=== PATIENT | female | born 1980 | race Caucasian/White ===

== ENCOUNTER → 2019-03-30 11:00 | Outpatient (BNVA) | payer MEDICARE, MEDICAID, SELFPAY | PROVIDERS: Family Provider Family Medicine; PCP Family Medicine; Visit Provider Nurse Practitioner | DX: F43.21 Adjustment disorder with depressed mood (principal); F31.81 Bipolar II disorder | CPT/HCPCS: 99213 ==

== ENCOUNTER 2019-04-28 10:00 | Outpatient (CLI) | payer MEDICARE, MEDICAID, SELFPAY ==
--- NOTE | 2019-04-28 11:14 | XR_ITS ---
WS: [id number] LEFT KNEE: 2 VIEW(S) TECHNIQUE: AP and lateral. HISTORY: UNSPECIFIED FALL, INITIAL ENCOUNTER COMPARISON: None available. No fracture or dislocation. Mild narrowing of patellofemoral joint space. Lucent areas with sclerotic margins along the posterior surface of the patella. No soft tissue abnormality. XR/XR knee LT 1-2V 56860 IMPRESSION: 1. Mild LEFT patellofemoral joint space narrowing with osteochondral lesions a long the posterior surface. 2. No fracture.
--- NOTE | 2019-04-28 11:38 | XR_ITS ---
WS: [id number] RIGHT KNEE: 2 VIEW(S) TECHNIQUE: AP and lateral. HISTORY: UNSPECIFIED FALL, INITIAL ENCOUNTER COMPARISON: None available. No fracture or dislocation. No significant narrowing of the joint spaces. Lucency with sclerotic margins in the posterior surface of the patella. No joint effusion. No soft tissue abnormality. XR/XR knee RT 1-2V 66774 IMPRESSION: 1. No fracture. 2. Suspect osteochondral defect on the posterior surface of the patella.
== END 2019-04-28 10:01 | disposition home or self-care (01) ==
LOC: RADOUTREAD 10:06
PROVIDERS: Family Provider Family Medicine; PCP Family Medicine; Visit Provider Family Medicine
DX: M22.2X2 Patellofemoral disorders, left knee (principal); S89.92XA Unspecified injury of left lower leg, initial encounter; S89.91XA Unspecified injury of right lower leg, initial encounter; W19.XXXA Unspecified fall, initial encounter
CPT/HCPCS: 73560

== ENCOUNTER → 2019-06-26 07:30 | Outpatient (BNVA) | payer MEDICARE, MEDICAID, SELFPAY | PROVIDERS: Family Provider Family Medicine; PCP Family Medicine; Visit Provider Nurse Practitioner | DX: F31.73 Bipolar disorder, in partial remission, most recent episode manic (principal) | CPT/HCPCS: 99213 ==

== ENCOUNTER → 2019-08-01 07:57 | Outpatient (BNVA) | payer MEDICARE, MEDICAID, SELFPAY | PROVIDERS: Family Provider Family Medicine; PCP Family Medicine; Visit Provider Nurse Practitioner | DX: F31.81 Bipolar II disorder (principal) | CPT/HCPCS: 99213 ==

== ENCOUNTER 2019-08-09 13:04 | Outpatient (CLI) | payer MEDICARE, MEDICAID, SELFPAY ==
--- NOTE | 2019-08-09 13:15 | CT_ITS ---
WS: [id number] CT head wo con* [id number] REASON FOR EXAM: V/P Shunt IV CONTRAST ADMINISTERED: none TOTAL EXAM DLP: 1058.[address] scans at [facility] use at least one of these dose optimization techniques: automat ed exposure control; mA and/or kV adjustment per patient size (includes targeted exams where dose is matched to clinical indication); or iterative reconstruction. FINDINGS: A shunt tube is noted in the right ventricle which is small the left ventricle appears to b e slightly prominent. The shunt tube appears to be slightly more to the left than right. This positioning has not changed s paul March 09, 2018. There appears to be a craniotomy along the left side of the temporal occipital lobes. In the left elvis tral enlargement is seen on the left. This is showing no change. The remaining hernandez and white matter was normal no hemorrhage, macro infarction, or mass effect. The posterior fossa was normal. These cervical spine was normal. Involving the C1-2 level. The paranasal sinuses all appear to be normal. The calvarium other than the craniotomy defect is normal. CT/CT head wo con* [id number] IMPRESSION: Unchanged positioning of the shunt tube since previous exam. 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
--- NOTE | 2019-08-09 13:45 | XR_ITS ---
WS: [id number] SHUNT SERIES HISTORY: V/P Shunt COMPARISON: None available. AP and lateral skull and neck, AP and lateral thorax, AP and lateral abdomen. INGOT HEADER shunt catheter projects over the RIGHT calvarium with the catheter along the soft tissues of the R IGHT neck and over the RIGHT thorax. Tip of the catheter is in the RIGHT pelvis. Catheter is intact. Short segment catheter projecting over the LEFT lung which is in the soft tissues. XR/XR shunt series IMPRESSION: INGOT HEADER shunt catheter is intact with tip coiled in the RIGHT adnexa.
== END 2019-08-09 13:05 | disposition home or self-care (01) ==
PROVIDERS: Family Provider Family Medicine; PCP Family Medicine; Visit Provider Licensed Practical Nurse
DX: Z98.2 Presence of cerebrospinal fluid drainage device (principal); Q05.9 Spina bifida, unspecified
CPT/HCPCS: 70250; 70450; 71046; 72040; 74019

== ENCOUNTER → 2019-08-17 08:32 | Outpatient (BNVA) | payer MEDICARE, MEDICAID, SELFPAY | PROVIDERS: Family Provider Family Medicine; PCP Family Medicine; Visit Provider Counselor Professional | DX: F31.81 Bipolar II disorder (principal); F43.21 Adjustment disorder with depressed mood | CPT/HCPCS: 90832; 90834 ==

== ENCOUNTER → 2019-11-08 08:00 | Outpatient (BNVA) | payer MEDICARE, MEDICAID, SELFPAY | PROVIDERS: Family Provider Family Medicine; PCP Family Medicine; Visit Provider Nurse Practitioner | DX: F31.81 Bipolar II disorder (principal) | CPT/HCPCS: 99213 ==

== ENCOUNTER → 2020-01-19 10:11 | Outpatient (BNVA) | payer OTHER, SELFPAY | PROVIDERS: Family Provider Family Medicine; Visit Provider Nurse Practitioner | DX: F31.81 Bipolar II disorder (principal) | CPT/HCPCS: 80061; 83036 ==

== ENCOUNTER → 2020-02-06 07:45 | Outpatient (BNVA) | payer MEDICARE, MEDICAID, SELFPAY ==
[2020-01-22 11:18] VITALS: BP 121/86; BMI 39.5
== END ==
PROVIDERS: Family Provider Family Medicine; Visit Provider Nurse Practitioner
DX: F31.81 Bipolar II disorder (principal)
CPT/HCPCS: 99214

== ENCOUNTER → 2020-04-17 08:15 | Outpatient (BNVA) | payer MEDICARE, MEDICAID, SELFPAY ==
[2020-01-22 11:18] VITALS: BP 121/86; BMI 39.5
== END ==
PROVIDERS: Family Provider Family Medicine; Visit Provider Nurse Practitioner
DX: F31.81 Bipolar II disorder (principal)
CPT/HCPCS: 99214

== ENCOUNTER → 2020-05-30 08:06 | Outpatient (BNVA) | payer MEDICARE, MEDICAID, SELFPAY ==
[2020-01-22 11:18] VITALS: BP 121/86; BMI 39.5
== END ==
PROVIDERS: Family Provider Family Medicine; Visit Provider Nurse Practitioner
DX: F31.81 Bipolar II disorder (principal)
CPT/HCPCS: 99214

== ENCOUNTER 2020-06-13 14:25 | Outpatient (CLI) | payer MEDICARE, MEDICAID, SELFPAY ==
[2020-01-22 11:18] VITALS: BP 121/86; BMI 39.5
--- NOTE | 2020-06-13 14:36 | MM_ITS ---
WS: [id number] BILATERAL DIGITAL DIAGNOSTIC MAMMOGRAM MAMMOGRAPHY WITH CAD CLINICAL INFORMATION: N63.20 - Unspecified lump in the left breast, unspecified quadrant COMPARISON: None. TECHNIQUE: Bilateral CC, MLO, and ML views. FINDINGS: Calcified shunt tubing left chest wall. Scattered fibroglandular densities bilaterally. Palpable marker upper inner left breast. No underlyin g suspicious mammographic abnormalities in the area of palpable concern. Ultrasound is pending. 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 Ultrasound left breast is pending. Asymmetric density right breast just above the posterior nipple line measuring 11 mm. Recommend furth er evaluation with RIGHT diagnostic mammography and ultrasound. ULTRASOUND BREAST LEFT TECHNIQUE: Ultrasound left breast focused area of concern. CLINICAL INFORMATION: N63.20 - Unspecified lump in the left breast, unspecified quadrant FINDINGS: Ultrasound left breast at the 10-11 o'clock positions in the area of concern. No evidence of suspicio us underlying mass or lesion. Calcified lesion at the 10:00 position corresponds to the dystrophic ca lcification on the mammogram likely involuted fibroadenoma. No suspicious lesions. No lesions to tar get for biopsy. Left breast findings are benign. MM/[place] [id number] IMPRESSION: BI-RADS: 0-Incomplete: Need additional imaging evaluation FOLLOW UP: Need Additional Imaging ASYMMETRIC DENSITY RIGHT BREAST JUST ABOVE THE POSTERIOR NIPPLE LINE MEASURING 11 MM RECOMMEND FURTHER EVALUATION WITH RIGHT DIAGNOSTIC MAMMOGRAPHY AND ULTRAS OUND. LEFT BREAST IS UNREMARKABLE.
== END 2020-06-13 14:26 | disposition home or self-care (01) ==
PROVIDERS: PCP Family Medicine; Visit Provider Obstetrics & Gynecology
DX: N63.20 Unspecified lump in the left breast, unspecified quadrant (principal); N64.89 Other specified disorders of breast
CPT/HCPCS: 76642; 77066

== ENCOUNTER → 2020-07-23 08:13 | Outpatient (BNVA) | payer MEDICARE, MEDICAID, SELFPAY ==
[2020-01-22 11:18] VITALS: BP 121/86; BMI 39.5
== END ==
PROVIDERS: PCP Family Medicine; Visit Provider Nurse Practitioner
DX: F31.81 Bipolar II disorder (principal)
CPT/HCPCS: 99214

== ENCOUNTER → 2020-09-17 07:22 | Outpatient (BNVA) | payer MEDICARE, MEDICAID, SELFPAY ==
[2020-01-22 11:18] VITALS: BP 121/86; BMI 39.5
== END ==
PROVIDERS: PCP Family Medicine; Visit Provider Nurse Practitioner
DX: F31.81 Bipolar II disorder (principal)
CPT/HCPCS: 99214

== ENCOUNTER → 2020-11-13 07:21 | Outpatient (BNVA) | payer MEDICARE, MEDICAID, SELFPAY ==
[2020-01-22 11:18] VITALS: BP 121/86; BMI 39.5
== END ==
PROVIDERS: PCP Family Medicine; Visit Provider Nurse Practitioner
DX: F31.81 Bipolar II disorder (principal)
CPT/HCPCS: 99214

== ENCOUNTER → 2021-01-16 11:19 | Outpatient (BNVA) | payer OTHER, SELFPAY ==
[2020-01-22 11:18] VITALS: BP 121/86; BMI 39.5
== END ==
PROVIDERS: PCP Family Medicine; Visit Provider Nurse Practitioner
DX: F31.81 Bipolar II disorder (principal); Z79.899 Other long term (current) drug therapy
CPT/HCPCS: 80061; 83036

== ENCOUNTER → 2021-01-28 07:45 | Outpatient (BNVA) | payer MEDICARE, MEDICAID, SELFPAY ==
[2021-01-17 15:06] VITALS: BMI 42.0
== END ==
PROVIDERS: PCP Family Medicine; Visit Provider Nurse Practitioner Psychiatric/Mental Health
DX: F31.81 Bipolar II disorder (principal); Q05.9 Spina bifida, unspecified
CPT/HCPCS: 99214

== ENCOUNTER → 2021-02-25 08:26 | Outpatient (BNVA) | payer MEDICARE, MEDICAID, SELFPAY ==
[2021-01-17 15:06] VITALS: BMI 42.0
== END ==
PROVIDERS: PCP Family Medicine; Visit Provider Nurse Practitioner Psychiatric/Mental Health
DX: F31.81 Bipolar II disorder (principal); Q05.9 Spina bifida, unspecified; G89.29 Other chronic pain
CPT/HCPCS: 99213

== ENCOUNTER → 2021-03-25 08:06 | Outpatient (BNVA) | payer MEDICARE, MEDICAID, SELFPAY ==
[2021-01-17 15:06] VITALS: BMI 42.0
== END ==
PROVIDERS: PCP Family Medicine; Visit Provider Nurse Practitioner Psychiatric/Mental Health
DX: F31.81 Bipolar II disorder (principal); Q05.9 Spina bifida, unspecified; G89.29 Other chronic pain
CPT/HCPCS: 99213

== ENCOUNTER → 2021-05-26 08:02 | Outpatient (BNVA) | payer MEDICARE, MEDICAID, SELFPAY ==
[2021-01-17 15:06] VITALS: BMI 42.0
== END ==
PROVIDERS: PCP Family Medicine; Visit Provider Nurse Practitioner Psychiatric/Mental Health
DX: F31.81 Bipolar II disorder (principal); Z79.899 Other long term (current) drug therapy; Q05.9 Spina bifida, unspecified; G89.29 Other chronic pain
CPT/HCPCS: 99213

== ENCOUNTER → 2021-06-12 10:03 | Outpatient (BNVA) | payer MEDICARE, MEDICAID, SELFPAY ==
[2021-01-17 15:06] VITALS: BMI 42.0
== END ==
PROVIDERS: PCP Family Medicine; Visit Provider Nurse Practitioner Psychiatric/Mental Health
DX: Z79.899 Other long term (current) drug therapy (principal)
CPT/HCPCS: 80053; 85025

== ENCOUNTER → 2021-08-19 07:14 | Outpatient (BNVA) | payer MEDICARE, MEDICAID, SELFPAY ==
[2021-01-17 15:06] VITALS: BMI 42.0
== END ==
PROVIDERS: PCP Family Medicine; Visit Provider Nurse Practitioner Psychiatric/Mental Health
DX: F31.81 Bipolar II disorder (principal); Q05.9 Spina bifida, unspecified; G89.29 Other chronic pain
CPT/HCPCS: 99213